=== PATIENT | male | born 1955 | race Caucasian/White ===

== ENCOUNTER 2023-09-10 14:50 | Outpatient (CLI) | payer MEDICARE ==
--- NOTE | 2023-09-10 16:33 | XRAY Report ---
PROCEDURE: Cervical Spine 2-3V INDICATIONS: NECK PAIN TECHNIQUE: 3 view(s) of the cervical spine were acquired. COMPARISON: None. FINDINGS: Bones: No fractures or dislocations to the cervical straightening is present. Multilevel degenerativ e disc space narrowing most severe at L5 and C7-T1. Scattered small anterior osteophytes as well as u ncovertebral arthropathy is present. C7-T1 level. The lateral masses of C1 appear intact on the odon toid view. No suspicious bony lesions. Soft tissues: No prevertebral soft tissue swelling. 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 Reviewed by: Seema Betts MD on 09/10/2023 4:32 PM PDT Approved by: Seema Betts MD on 09/10/2023 4:32 PM PDT Station ID: [id number]
== END 2023-09-10 14:55 | disposition home or self-care (01) ==
LOC: DI.N 14:50
PROVIDERS: ATTEND Nurse Practitioner
DX: M47.812 Spondylosis without myelopathy or radiculopathy, cervical region (principal)